=== PATIENT | female | born 1945 | race Caucasian/White ===

== ENCOUNTER 2017-10-27 09:28 | Emergency (ER) | payer BC ==
[2017-10-27 09:38] VITALS: BP 158/84
--- NOTE | 2017-10-27 09:58 | UC ---
General HPI - HPI Summary HPI Summary: 72 YEAR OLD FEMALE WITH HIGH BLOOD PRESSURE. No Headache. BP at home averaging 150/90 or less . No reading much higher than that. no neuro deficits. no vision changes. been on BP meds for many years. She has not been adhering to low sodium diet - History of Current Complaint Chief Complaint: UCGeneralIllness Stated Complaint: HIGH BP Time Seen by Provider: 10/27/17 09:51 Hx Obtained From: Patient Onset/Duration: Gradual Onset Timing: Constant Pain Intensity: 0 - Allergy/Home Medications Allergies/Adverse Reactions: Allergies Allergy/AdvReac Type Severity Reaction Status Date / Time No Known Allergies Allergy Verified 10/27/17 09:39 PMH/Surg Hx/FS Hx/Imm Hx Previously Healthy: Yes - Surgical History Surgical History: Yes Surgery Procedure, Year, and Place: moles removed,appy - Family History Known Family History: Positive: Hypertension - Social History Lives: With Family Alcohol Use: Occasionally Substance Use Type: None Smoking Status (MU): Never Smoked Tobacco - Immunization History Most Recent Influenza Vaccination: 2013 Most Recent Tetanus Shot: within last 10 years Most Recent Pneumonia Vaccination: never Review of Systems Constitutional: Negative Skin: Negative Eyes: Negative ENT: Negative Respiratory: Negative Cardiovascular: Negative Gastrointestinal: Negative Genitourinary: Negative Motor: Negative Neurovascular: Negative Musculoskeletal: Negative Is Patient Immunocompromised?: No All Other Systems Reviewed And Are Negative: Yes Physical Exam Triage Information Reviewed: Yes Appearance: Well-Appearing, No Pain Distress, Well-Nourished Vital Signs: Initial Vital Signs Temp 97 F 10/27/17 09:35 Pulse 78 10/27/17 09:35 Resp 16 10/27/17 09:35 BP 158/84 10/27/17 09:35 Pulse Ox 100 10/27/17 09:35 Vital Signs Reviewed: Yes Eye Exam: Normal ENT Exam: Normal Dental Exam: Normal Neck exam: Normal Neck: Positive: 1 Respiratory Exam: Normal Cardiovascular Exam: Normal Musculoskeletal Exam: Normal Neurological Exam: Normal Psychological Exam: Normal Skin Exam: Normal Course/Dx - Course Course Of Treatment: EKG done since per patient not done in years. no acute concerns. BP stage 1 HTN. start ARB since with asthma avoid OLEG. Discussed SE. f /u with PCP. no CP/RICK/SOB. If develops any of these Sx then go to ED. Declined labs as she will f/u with PCP this week . EKG shows no change from 2014. - Differential Dx - Multi-Symptom Provider Diagnoses: Hypertension Discharge - Sign-Out/Discharge Documenting (check all that apply): Discharge/Admit/Transfer - Discharge Plan Condition: Good Disposition: HOME Prescriptions: Losartan Potassium 25 mg PO DAILY #30 tablet Patient Education Materials: Hypertension (ED) Referrals: Tab Carson MD [Primary Care Provider] - 3 Days - Billing Disposition and Condition Condition: GOOD Disposition: HOME
== END 2017-10-27 10:28 | disposition home or self-care (01) ==
LOC: UCEAST 09:28
DX: I10 Essential (primary) hypertension (principal)
CPT/HCPCS: 93005; 99212; G0463

== ENCOUNTER 2019-07-01 07:48 | Emergency (ER) | payer BC ==
[2019-07-01 08:00] VITALS: BP 156/73
--- NOTE | 2019-07-01 08:13 | UC ---
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 Some SOB with a cough. She thinks she has pneumonia. Pleasant 73 yo female c/o 2 days cough, a little productive (color?), no hemoptysis. Has hx pneumonia, concerned that she may be getting pneumonia again , feels similar. 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 Has some discomfort in R mid-upper post back, worse with inspiration. No fever / chills. No rash. Denies urinary sx, denies hematuria. No GI issues. No palpitations. No recent travel. Denies leg swelling or pain. - History of Current Complaint Chief Complaint: UCGeneralIllness Stated Complaint: RIGHT SIDED BACKPAIN Time Seen by Provider: 07/01/19 08:10 Hx Obtained From: Patient Pain Intensity: 7 - Allergy/Home Medications Allergies/Adverse Reactions: Allergies Allergy/AdvReac Type Severity Reaction Status Date / Time sun Allergy Itching Uncoded 07/01/19 08:01 Home Medications: Home Medications Balsalazide Disodium [Colazal] 3 tab PO TID 07/01/19 [History Confirmed 07/01/19 ] PMH/Surg Hx/FS Hx/Imm Hx Previously Healthy: Yes - see pmh - Surgical History Surgical History: Yes Surgery Procedure, Year, and Place: moles removed,appy - Family History Known Family History: Positive: Hypertension - Social History Alcohol Use: Rare Substance Use Type: None Smoking Status (MU): Never Smoked Tobacco - Immunization History Most Recent Influenza Vaccination: 2013 Most Recent Tetanus Shot: within last 10 years Most Recent Pneumonia Vaccination: never Review of Systems All Other Systems Reviewed And Are Negative: Yes Constitutional: Positive: Negative Skin: Positive: Negative Eyes: Positive: Negative ENT: Positive: Negative Respiratory: Positive: Cough, Other - see hpi Cardiovascular: Positive: Other - see hpi Gastrointestinal: Positive: Negative Genitourinary: Positive: Other - see hpi Motor: Positive: Negative Neurovascular: Positive: Negative Musculoskeletal: Positive: Negative Neurological: Positive: Negative Psychological: Positive: Negative Is Patient Immunocompromised?: No Physical Exam Triage Information Reviewed: Yes Appearance: Well-Appearing, Well-Nourished Vital Signs: Initial Vital Signs Temp 98.3 F 07/01/19 07:55 Pulse 81 07/01/19 07:55 Resp 20 07/01/19 07:55 BP 156/73 07/01/19 07:55 Pulse Ox 94 07/01/19 07:55 Vital Signs Reviewed: Yes Eye Exam: Normal ENT Exam: Normal Neck exam: Normal Neck: Positive: Supple, Nontender, No Lymphadenopathy Respiratory Exam: Other - BS equal, mild decreased BL bs. No distress. Subj discomfort with deep inspiration. Respiratory: Positive: No respiratory distress, No accessory muscle use Cardiovascular Exam: Normal Cardiovascular: Positive: RRR, Pulses Normal, Brisk Capillary Refill Abdominal Exam: Other - + nabs, soft. ND. No cvat perse, no flank pain elicited. Some pain mid upper back (post chest area), but not reproducible with external pressure Musculoskeletal Exam: Normal - gait steady Musculoskeletal: Positive: Strength Intact, Other: - no unusual edema Neurological Exam: Normal - grossly nonfocal Psychological Exam: Normal - nad Skin Exam: Normal - no visible or reported rash. nondiaphoretic. Course/Dx - Course Course Of Treatment: Reviewed ct report from 05/2018 ([facility]) Reviewed cxr report with pt today. Urine dip reviewed with pt. 3+ blood noted on dip. D/w pt coa / tx plan. Discomfort is higher up than expected for that of renal colic. Additionally, Ms. Almaguer reports some pleuritic discomfort (and sob to RN). As such, recommend further eval / management ED. D/w pt, she will go, wishes to drive. [ Questions as posed answered to the best of my ability. - Diagnoses Provider Diagnosis: Upper back pain on right side, Chest pain Discharge ED - Sign-Out/Discharge Documenting (check all that apply): Patient Departure All imaging exams completed and their final reports reviewed: Yes - Discharge Plan Condition: Stable Disposition: HOME-RECOMMEND TO ED Patient Education Materials: Chest Pain (ED), Hematuria (ED) Referrals: Tab Carson MD [Primary Care Provider] - Additional Instructions: Please go to the Emergency Department. Stop and call 911 if problems in the meantime. - Billing Disposition and Condition Condition: STABLE Disposition: Home-Recommend to ED
== END 2019-07-01 09:30 | disposition home health service (06) ==
LOC: UCEAST 07:48
DX: M54.89 Other dorsalgia (principal); R07.9 Chest pain, unspecified; R05 Cough; R06.02 Shortness of breath; Z91.09 Other allergy status, other than to drugs and biological substances
CPT/HCPCS: 71046; 81003; 87086; 99212; G0463

== ENCOUNTER 2019-07-01 09:52 | Emergency (ER) | payer BC ==
[2019-07-01 10:10] LABS: ABS Eosinophils 0.1 10^3/ul (0-0.6); ABS Monocytes 0.5 10^3/ul (0-0.8); ABS Neutrophils 5.6 10^3/ul (1.5-7.7); Hematocrit 39 % (35-47); Hemoglobin 12.5 g/dL (12.0-16.0); Lymphocyte % 14.4 %; Mean Corpuscular HGB Conc 33 g/dL (31-36); Mean Corpuscular Hemoglobin 26 pg (27-31); Mean Corpuscular Volume 79 fL (80-97); Mean Platelet Volume 8.2 fL (7.4-10.4); Nucleated Red Blood Cells % 0.1; Platelet Count 234 10^3/uL (150-450); Red Blood Count 4.86 10^6 /uL (3.70-4.87); Red Cell Distribution Width 14 % (10-15); White Blood Count 7.2 10^3/uL (3.5-10.8)
[2019-07-01] MEDS ORDERED: NS 0.9% 1000 ML** 1,000 ML IV ONE (10:17)
--- NOTE | 2019-07-01 10:17 | ED ---
Back Pain - HPI Summary HPI Summary: Patient is a 73 y/o F presenting to the ED for a chief complaint of right upper back pain that began on the night of 06/30/19. Patient is present with her . Patient states that her back pain continued on 07/01/19 upon waking up. On triage, she rates her back pain as 6/10 in severity. The back pain worsens with movement and deep breaths, and improves when lying down. Patient also notes a cough, chest pain, and shortness of breath. Patient denies abdominal pain, urinary burning, dysuria, fever, bilateral LE edema, bilateral LE myalgia, or right shoulder pain. She denies any aggravating or alleviating factors. Patient denies any recent heavy lifting. She was seen at [facility] for her symptoms and had an EKG performed and a urinalysis that showed hematuria. She was sent to [facility] to be assessed for possible nephrolithiasis, blood clots, or pulmonary embolism. PMHx is significant for HTN and ulcerative colitis that was recently diagnosed. A history of blood clots, cardiac problems , DM, or PA is denied. She had a colonoscopy performed in the past for blood in her stool and diarrhea. She denies taking blood thinners. - History of Current Complaint Chief Complaint: EDGeneral Stated Complaint: CHEST PAIN FROM CC Time Seen by Provider: 07/01/19 09:54 Hx Obtained From: Patient Onset/Duration: Sudden Onset, Lasting Hours, Still Present Onset/Duration: Atraumatic, Still Present Timing: Constant Back Pain Location: Is Discrete @ - Right upper back Severity Initially: Moderate Severity Currently: Moderate Pain Intensity: 6 Pain Scale Used: 0-10 Numeric Aggravating Symptom(s): Movement, Other - Deep breaths Alleviating Symptom(s): Other - Lying down Associated Signs And Symptoms: Negative: Swelling - Bilateral LE, Fever, Abdominal Pain - Allergies/Home Medications Allergies/Adverse Reactions: Allergies Allergy/AdvReac Type Severity Reaction Status Date / Time sun Allergy Itching Uncoded 07/01/19 08:01 Home Medications: Home Medications Balsalazide Sodium CAP(NF) [Colazal CAP(NF)] 2,250 mg PO TID 07/01/19 [History Confirmed 07/01/19] PMH/Surg Hx/FS Hx/Imm Hx Previously Healthy: Yes Endocrine/Hematology History: Denies: Hx Anticoagulant Therapy, Hx Diabetes Cardiovascular History: Reports: Hx Hypertension - on meds Denies: Hx Deep Vein Thrombosis, Hx Embolism Respiratory History: Reports: Hx Asthma Denies: Hx Pulmonary Embolism GI History: Reports: Other GI Disorders - Ulcerative colitis History: Denies: Hx Renal Disease Sensory History: Reports: Hx Contacts or Glasses - glasses Denies: Hx Legally Blind, Hx Deafness, Hx Hearing Aid Opthamlomology History: Reports: Hx Contacts or Glasses - glasses Denies: Hx Legally Blind EENT History: Denies: Hx Deafness - Cancer History Hx Chemotherapy: No Hx Radiation Therapy: No - Surgical History Surgical History: Yes Surgery Procedure, Year, and Place: moles removed,appy Hx Anesthesia Reactions: No Infectious Disease History: No Infectious Disease History: Denies: Traveled Outside the [place] in Last 30 Days - Family History Known Family History: Positive: Hypertension - Social History Occupation: Employed Full-time Lives: With Family Alcohol Use: Rare Hx Substance Use: No Substance Use Type: Reports: None Hx Tobacco Use: No Smoking Status (MU): Never Smoked Tobacco Review of Systems Negative: Fever Positive: Chest Pain Positive: Shortness Of Breath, Cough Negative: Abdominal Pain Negative: burning - Urinary, dysuria Positive: Myalgia - Positive right upper back pain; negative bilateral LE pain. Negative: Arthralgia - Right shoulder, Edema - Bilateral LE All Other Systems Reviewed And Are Negative: Yes Physical Exam - Summary Physical Exam Summary: Constitutional: Well-developed, Well-nourished, Alert. (-) Distressed Skin: Warm, Dry HENT: Normocephalic; Atraumatic Eyes: Conjunctiva normal Neck: Musculoskeletal ROM normal neck. (-) JVD, (-) Stridor, (-) Tracheal deviation Cardio: Rhythm regular, rate normal, Heart sounds normal; Intact distal pulses; The pedal pulses are 2+ and symmetric. Radial pulses are 2+ and symmetric. (-) Murmur Pulmonary/Chest wall: Effort normal. (-) Respiratory distress, (-) Wheezes, (-) Rales Abd: Soft, (-) tenderness, (-) Distension, (-) Guarding, (-) Rebound Musculoskeletal: (-) Edema. Mild tenderness to palpation of the upper back, most notably interior to the scapula, no erythema or contusions. Lymph: (-) Cervical adenopathy Neuro: Alert, Oriented x3 Psych: Mood and affect Normal Triage Information Reviewed: Yes Vital Signs On Initial Exam: Initial Vitals Temp Pulse Resp BP Pulse Ox 98.4 F 85 16 167/94 96 07/01/19 09:53 07/01/19 09:53 07/01/19 09:53 07/01/19 09:53 07/01/19 09:53 Vital Signs Reviewed: Yes Procedures - Sedation Patient Received Moderate/Deep Sedation with Procedure: No Diagnostics - Vital Signs Vital Signs Temp Pulse Resp BP Pulse Ox 07/01/19 09:53 98.4 F 85 16 167/94 96 - Laboratory Lab Results: Lab Results 07/01/19 Range/Units 10:02 WBC 7.2 (3.5-10.8) 10^3/uL RBC 4.86 (3.70-4.87) 10^6 /uL Hgb 12.5 (12.0-16.0) g/dL Hct 39 (35-47) % MCV 79 L (80-97) fL MCH 26 L (27-31) pg MCHC 33 (31-36) g/dL RDW 14 (10-15) % Plt Count 234 (150-450) 10^3/uL MPV 8.2 (7.4-10.4) fL Neut % (Auto) 77.5 % Lymph % (Auto) 14.4 % [place] % (Auto) 6.7 % Eos % (Auto) 1.0 % Baso % (Auto) 0.4 % Absolute Neuts (auto) 5.6 (1.5-7.7) 10^3/ul Absolute Lymphs (auto) 1.0 (1.0-4.8) 10^3/ul Absolute Monos (auto) 0.5 (0-0.8) 10^3/ul Absolute Eos (auto) 0.1 (0-0.6) 10^3/ul Absolute Basos (auto) 0.0 (0-0.2) 10^3/ul Absolute Nucleated RBC 0.0 10^3/ul Nucleated RBC % 0.1 Result Diagrams: 07/01/19 10:02 07/01/19 10:02 Lab Statement: Any lab studies that have been ordered have been reviewed, and results considered in the medical decision making process. - CT Chest/Thorax CTA CT Interpretation Completed By: Radiologist Summary of CT Findings: Chest/Thorax CTA IMPRESSION: 1. NO PULMONARY ARTERIAL FILLING DEFECT TO SUGGEST PULMONARY EMBOLISM. 2. THERE IS QUESTION OF INFLAMMATORY CHANGE ALONG THE TAIL OF THE PANCREAS. THIS IS INCOMPLETELY EVALUATED ON THE CURRENT EXAMINATION, THOUGH PANCREATITIS IS WITHIN THE DIFFERENTIAL. RECOMMEND CORRELATION WITH SERUM MARKERS OF PANCREATITIS. 3. CHOLELITHIASIS. Reviewed by Dr. Rausch. - EKG 10:04 Cardiac Rate: NL - 75 BPM EKG Rhythm: Sinus Rhythm ST Segment: Normal Ectopy: None Summary of EKG Findings: EKG at 10:04 shows normal sinus rhythm with 75 BPM, no STEMI, no ischemic changes. Dr. Rausch has reviewed and interpreted this EKG. Back Pain Course/Dx - Course Course Of Treatment: Patient is a 73 y/o F presenting to the ED for a chief complaint of right upper back pain that began on the night of 06/30/19. Patient is present with her . Patient states that her back pain continued on upon waking up. On triage, she rates her back pain as 6/10 in severity. The back pain worsens with movement and deep breaths, and improves when lying down. Patient also notes a cough, chest pain, and shortness of breath. Patient denies abdominal pain, urinary burning, dysuria, fever, bilateral LE edema, bilateral LE myalgia, or right shoulder pain. She denies any aggravating or alleviating factors. Patient denies any recent heavy lifting. She was seen at [facility] for her symptoms and had an EKG performed and a urinalysis that showed hematuria. She was sent to [facility] to be assessed for possible nephrolithiasis, blood clots, or pulmonary embolism. PMHx is significant for HTN and ulcerative colitis that was recently diagnosed. A history of blood clots , cardiac problems, DM, or PA is denied. She had a colonoscopy performed in the past for blood in her stool and diarrhea. She denies taking blood thinners. On exam, mild tenderness to palpation of the upper back, most notably inferior to the scapula, no erythema or contusions. In the ED course, patient was given IV fluids and iohexol 70 ml IV. Laboratory abnormal findings: MCV 79, MCH 26, INR 1.13, D-dimer 253, glucose 187, AST 11, ALT 6, globulin 4.1,lipase 148, urine protein 1+, urine blood 2+, urine leukocyte esterase trace, urine RBC 3+, urine squamous epith cells present, urine glucose 1+. EKG at 10:04 shows normal sinus rhythm with 75 BPM, no STEMI, no ischemic changes. Chest/Thorax CTA IMPRESSION: 1. NO PULMONARY ARTERIAL FILLING DEFECT TO SUGGEST PULMONARY EMBOLISM. 2. THERE IS QUESTION OF INFLAMMATORY CHANGE ALONG THE TAIL OF THE PANCREAS. THIS IS INCOMPLETELY EVALUATED ON THE CURRENT EXAMINATION, THOUGH PANCREATITIS IS WITHIN THE DIFFERENTIAL. RECOMMEND CORRELATION WITH SERUM MARKERS OF PANCREATITIS. 3. CHOLELITHIASIS. Patient will be discharged with a diagnosis of upper back muscle strain and hematuria. Follow up with PCP in 1- 3 days. Patient informed of elevated lipase level. Patient currently not having abdominal pain. Notes recent diagnosis of colitis, thus elevated lipase and CT findings as above possibly resolving symptoms. Patient instructed to follow up with PCP for lipase redraw to check trend as well as repeat urinalysis given hematuria, both findings which appear to be unrelated to the patient's right upper/mid back pain which seems muscular skeletal in nature giving exacerbation by movement. Patient discharged home at this time. - Diagnoses Provider Diagnoses: Muscle strain of upper back, Hematuria Discharge ED - Sign-Out/Discharge Documenting (check all that apply): Patient Departure - Discharge - Discharge Plan Condition: Stable Disposition: HOME Patient Education Materials: Muscle Strain (ED) Referrals: Tab Carson MD [Primary Care Provider] - Additional Instructions: RETURN TO THE EMERGENCY DEPARTMENT FOR CHANGING OR WORSENING SYMPTOMS. Follow up with your primary care provider in 2-3 days. Follow up with your primary care provider for a repeat urinalysis given the noted hematuria, as well as a repeat lipase. - Billing Disposition and Condition Condition: STABLE Disposition: Home - Attestation Statements Document Initiated by Leland: Yes Documenting Scribe: Debi Bueno Provider For Whom Leland is Documenting (Include Credential): Otis Rausch DO Scribe Attestation: Debi Roque scribed for Otis Rausch DO on 07/01/19 at 1508. Scribe Documentation Reviewed: Yes Provider Attestation: The documentation as recorded by the Debi menjivar accurately reflects the service I personally performed and the decisions made by me, Otis Rausch DO Status of [place]rab[place] Document: Viewed
[2019-07-01 10:20] LABS: INR 1.13 (0.82-1.09)
[2019-07-01 10:27] LABS: Albumin 4.1 g/dL (3.2-5.2); BUN/Creatinine Ratio 19.4 (8-20); Calcium 9.6 mg/dL (8.6-10.3); EGFR African American 96.1 (>60); EGFR Non-African American 79.4 (>60); Globulin 4.1 g/dL (2-4); Potassium 3.7 mmol/L (3.5-5.0); Total Bilirubin 0.4 mg/dL (0.2-1.0); Total Protein 8.2 g/dL (6.4-8.9)
[2019-07-01 11:15] LABS: Urine Appearance Clear; Urine Bilirubin Negative (Negative); Urine Blood 2+ (Negative); Urine Color Yellow; Urine Glucose 1+(50 mg/dL) (Negative); Urine Ketones Negative (Negative); Urine Nitrite Negative (Negative); Urine Protein 1+(30 mg/dL) (Negative); Urine Specific Gravity 1.023 (1.010-1.030); Urine Urobilinogen Negative (Negative)
[2019-07-01 11:19] LABS: Urine Bacteria Absent (Absent); Urine Red Blood Cell 3+(>10/hpf) (Absent); Urine Squamous Epithelial Cell Present (Absent); Urine White Blood Cell Trace(0-5/hpf) (Absent)
[2019-07-01] MEDS ORDERED: Iohexol 350* (CONTRAST) 500 ML MDV IV ONE (11:23)
[2019-07-01 13:53] VITALS: BP 176/86
== END 2019-07-01 13:52 | disposition home or self-care (01) ==
LOC: ED 09:52
DX: S29.012A Strain of muscle and tendon of back wall of thorax, initial encounter (principal); R31.9 Hematuria, unspecified; K80.20 Calculus of gallbladder without cholecystitis without obstruction; X58.XXXA Exposure to other specified factors, initial encounter; Y92.9 Unspecified place or not applicable; I10 Essential (primary) hypertension; J45.909 Unspecified asthma, uncomplicated; Z79.899 Other long term (current) drug therapy
CPT/HCPCS: 36415; 71275; 80053; 81003; 81015; 83690; 84484; 85025; 85379; 85610; 93005; 96360; 96361; 99283; Q9967